=== PATIENT | male | born 1960 | race Caucasian/White ===

== ENCOUNTER 2019-02-02 21:48 | Emergency (ER) | payer MEDICAID, SELFPAY ==
[2019-02-02 21:49] VITALS: BP 99/73; PULSE 75; RESP 14; TEMP 36.4; O2SAT 95; BMI 23.6
--- NOTE | 2019-02-02 22:05 | RAD_ITS ---
STUDY: X-RAY - ABDOMEN/PELVIS REASON FOR EXAM: Male, 58 years old. PEG tube placement TECHNIQUE: Single AP view of the abdomen / pelvis. COMPARISON: None. FINDINGS: Normal visualized lung bases. There is an unremarkable bowel gas pattern. There is no demonstrated free abdominal air. The visualized liver, spleen and kidneys are grossly normal in size and morphology. A PEG tube is noted with the distal tip within the distal gastric body. A small amount of contrast is seen within the stomach. There is no evidence of contrast extravasation. Normal visualized osseous structures. RAD/Abdomen Single View (Portable) IMPRESSION: PEG tube noted appearing in adequate position. There is no evidence of contrast extravasation. Electronically Signed: Jeremi Aguirre MD at 22:18 EST , Service support ,
--- NOTE | 2019-02-02 22:09 | ED.VIS.GEN ---
History of Present Illness Chief Complaint: Other, Pain/Inj Detail of Chief Complaint: PEG tube problem Informant: - - Hospice nurse Narrative: Patient was sent in by hospice. They have been in contact with charge nurse throughout the evening. Patient had a PEG tube placed but they did not have the correct catheter to flush the PEG tube. Upon arrival nursing staff did note that PEG tube requires a twist lock syringe. We were able to secure 1 of these. PEG was able to be aspirated and flushed with air noted in the stomach. Hospice was contacted but states that they needed verification of PEG tube positioning before he can come back. Past Medical History - Allergies and Home Meds Allergies/Adverse Reactions: Allergies lamotrigine [From Lamictal] Allergy (Verified 02/02/19 21:54) Unknown Sulfa (Sulfonamide Antibiotics) Allergy (Verified 02/02/19 21:54) Unknown Primary Care Physician: NOT,DEFINED [NON-STAFF] - Prior records reviewed: Yes Past Medical History: - - Reviewed Lives: - - Hospice Smoking Status: Unknown if ever smoked Review of Systems ROS: Unable to Obtain - Patient nonverbal Physical Exam Vital Signs/Narrative: Vital Signs Temp Pulse Resp BP Pulse Ox 02/02/19 21:49 97.5 F L 75 14 99/73 95 General: Cachectic ENT: Moist mucous membranes Cardiovascular: Regular rate, Regular rhythm Respiratory: No distress, CTA bilaterally Abdomen: Soft, Nontender, - - PEG tube in place. No surrounding erythema or drainage. Extremities: - - Chronic contractures Neurological: Alert Diagnostic/Tx/Re-eval Impressions KUB X-Ray 02/02/19 22:05 IMPRESSION: PEG tube noted appearing in adequate position. There is no evidence of contrast extravasation. Electronically Signed: Jeremi Aguirre MD at 22:18 EST , Service support , 02/02/19 22:05 XRAY Abdomen [Abdomen Single View (Portable)] [RAD] Stat - Medical Decision Making KUB was performed after giving Gastrografin via PEG tube. There is good position with no extravasation of contrast. Patient is discharged back to hospice with syringe so they can use his PEG tube. ED Disposition - Plan for ED Patient: Disposition: Home or Assisted Living Diagnosis: PEG tube malfunction Instructions: PEG Feeding Tube Care: [place] Referrals: NOT,DEFINED [NON-STAFF] -
== END 2019-02-02 22:21 | disposition home or self-care (01) ==
LOC: ED 22:21
PROVIDERS: Emergency Provider Emergency Medicine; Family Provider Internal Medicine Infectious Disease; PCP Internal Medicine Infectious Disease
DX: K94.23 Gastrostomy malfunction (principal)
CPT/HCPCS: 74018; 99284

== ENCOUNTER 2020-04-07 20:53 | Emergency (ER) | payer MEDICAID, SELFPAY ==
[2020-04-07 20:54] VITALS: BP 105/70; PULSE 91; RESP 16; TEMP 36.2; O2SAT 97; BMI 29.0
--- NOTE | 2020-04-07 21:04 | ED.VIS.GEN ---
History of Present Illness Chief Complaint: Other, Pain/Inj Narrative: Patient inadvertently pulled his PEG tube out. He is an [facility] patient. He arrives from an ECF. Past Medical History - Allergies and Home Meds Allergies/Adverse Reactions: Allergies lamotrigine [From Lamictal] Allergy (Verified 02/02/19 21:54) Unknown Sulfa (Sulfonamide Antibiotics) Allergy (Verified 02/02/19 21:54) Unknown Primary Care Physician: Alvaro Trujillo MD [Primary Care Provider] - Past Medical History: - - [facility] otherwise reviewed from ECF paperwork Smoking Status: Unknown if ever smoked Review of Systems ROS: Unable to Obtain - Patient is nonverbal Physical Exam Vital Signs/Narrative: Vital Signs Temp Pulse Resp BP Pulse Ox 04/07/20 20:54 97.1 F L 91 16 105/70 97 General: - - [facility] features ENT: Moist mucous membranes Cardiovascular: Regular rate, Regular rhythm Respiratory: No distress, CTA bilaterally Abdomen: - - He does not withdraw when I palpate his abdomen, he has a chronic well scarred gastric tube site. Back: Nontender Extremities: No edema Skin: Normal color Diagnostic/Tx/Re-eval - Medical Decision Making Procedure note: Gastric tube replacement Performed by emergency physician A 22 Norwegian tube was placed without any difficulty. The balloon was inflated with 5 mL. Gastric contents were seen. Because this is chronic and x-rays not needed. Patient will be discharged in stable condition. ED Disposition - Plan for ED Patient: Diagnosis: PEG tube malfunction Instructions: PEG Feeding Tube Care: [place] Referrals: Alvaro Trujillo MD [Primary Care Provider] - 2 Days for wound check
[2020-04-07 21:57] VITALS: BP 104/61; PULSE 90; RESP 18; O2SAT 98
[2020-04-08 03:29] VITALS: BP 111/84; PULSE 80; RESP 16; O2SAT 97
--- NOTE | 2020-04-08 03:30 | ED.RN ---
PT RETURNED, PEG TUBE FELL OUT.
--- NOTE | 2020-04-08 03:34 | RAD_ITS ---
STUDY: X-RAY - ABDOMEN/PELVIS REASON FOR EXAM: Male, 59 years old. Peg tube placement -- Dr. Gomez injected 50cc of gastrografin TECHNIQUE: Single AP view of the abdomen / pelvis. COMPARISON: None. FINDINGS: There is visually is contrast within the fundus of the stomach duodenal bulb and proximal duodenum. There is a visualized PEG tube overlying the mid aspect of the stomach. There is a gassy appearance of the small and large bowel. RAD/Abdomen Single View IMPRESSION: Percutaneous tube in the stomach with contrast extending into the small bowel as expected. Findings suggestive of ileus. Electronically Signed: Lakia Feliciano MD at 3:58 EST Tel , Service support ,
--- NOTE | 2020-04-08 03:36 | ED.VIS.GEN ---
History of Present Illness Chief Complaint: Other, Pain/Inj Informant: Patient Narrative: Patient presenting via private EMS with a chief complaint of his PEG tube fell out. Patient had it replaced earlier tonight. He came out again. He has been wearing abdominal binder. Past Medical History - Allergies and Home Meds Allergies/Adverse Reactions: Allergies lamotrigine [From Lamictal] Allergy (Verified 02/02/19 21:54) Unknown Sulfa (Sulfonamide Antibiotics) Allergy (Verified 02/02/19 21:54) Unknown Primary Care Physician: Alvaro Trujillo MD [Primary Care Provider] - 2 Days for wound check Past Medical History: - - [facility] Surgical History: - - PEG tube Smoking Status: Unknown if ever smoked Alcohol: None Drugs: None Review of Systems ROS: Unable to Obtain Physical Exam Vital Signs/Narrative: Vital Signs Pulse Resp BP Pulse Ox 04/08/20 03:29 80 16 111/84 H 97 Inital Vital Signs reviewed: Yes General: Well nourished, Well developed, No Acute Distress Head: Normocephalic, Atraumatic Eyes: Perrl, EOMI ENT: Moist mucous membranes, No rhinorrhea Neck: Supple, Nontender Cardiovascular: Regular rate, Regular rhythm, No murmurs Respiratory: No distress, CTA bilaterally, Chest nontender Abdomen: Soft, Nontender, Nondistended, Normal bowel sounds, - - PEG tube track appears without complication Skin: Normal color, No rash Neurological: Alert, Cranial nerves II-XII grossly intact, Normal Strength, Normal Sensation Diagnostic/Tx/Re-eval - Medical Decision Making 22 [place] PEG tube was placed. Balloon inflated to 6 mL of sterile saline in accordance with the manufactures guidelines. As this was the second placement today I obtained a postplacement x-ray. My interpretation of the single view abdominal film is that the tube placement is adequate. Patient will be transported back home. ED Disposition - Plan for ED Patient: Disposition: [facility] Facility Diagnosis: PEG tube malfunction Instructions: PEG Feeding Tube Care: [place] Referrals: Alvaro Trujillo MD [Primary Care Provider] - 2 Days for wound check
--- NOTE | 2020-04-08 04:33 | ED.RN ---
peg tube replaced by dr. aguirre. report given back to squad. pt to return to ECF
== END 2020-04-08 04:34 | disposition skilled nursing facility (03) ==
PROVIDERS: Emergency Provider Emergency Medicine; PCP Internal Medicine Infectious Disease
DX: K94.23 Gastrostomy malfunction (principal)
CPT/HCPCS: 74018; 99284; A4216

== ENCOUNTER 2021-03-20 14:04 | Emergency (ER) | payer MEDICAID, SELFPAY ==
[2021-03-20 14:04] VITALS: BP 123/81; PULSE 102; RESP 14; TEMP 36.6; O2SAT 96; BMI 277.9
--- NOTE | 2021-03-20 14:24 | EX.ED.DYSGE1 ---
HPI History of Present Illness Chief Complaint: Other, Pain/Inj Informant: SNF Narrative Narrative: Patient with history of dementia and Parkinson's disease, nonverbal at this time. ECF sent patient in secondary to patient pulling out his G-tube. He is currently DNR comfort care on hospice. They request his G-tube be replaced for medications and fluids. [facility] Medical History Anxiety disorder Behavioral disorder Cataracts, bilateral Dementia Dysphagia Heart attack HTN (hypertension) Parkinsons RLS (restless legs syndrome) Home Medications acetaminophen 650 mg tablet,extended release 650 mg PO Q12H 10/11/20 [History Last Taken Unknown] bisacodyl 10 mg rectal suppository 10 mg MT DAILY PRN 10/11/20 [History Last Taken Unknown] clonazepam 1 mg tablet 1 mg PO DAILY 10/11/20 [History Last Taken Unknown] haloperidol 5 mg tablet 5 mg PO TID 10/11/20 [History Last Taken Unknown] ketoconazole 2 % shampoo 1 applic TOPICAL 2XW 10/11/20 [History Last Taken Unknown] menthol 0.44 %-zinc oxide 20.6 % topical paste 1 applic TOPICAL 4-6XD PRN 10/11/20 [History Last Taken Unknown] mirtazapine 45 mg tablet 45 mg PO DAILY 10/11/20 [History Last Taken Unknown] morphine 20 mg/5 mL (4 mg/mL) oral solution 20 mg PO Q6H 10/11/20 [History Last Taken Unknown] pedi nutrition,iron,lact-free 0.03 gram-1 kcal/mL oral liquid ml PO 10/11/20 [History Last Taken Unknown] polyethylene glycol 3350 17 gram/dose oral powder 17 g PO DAILY 10/11/20 [History Last Taken Unknown] selenium sulfide 2.5 % lotion 1 applic TOPICAL Q2W 10/11/20 [History Last Taken Unknown] sodium polystyrene sulfonate 15 gram-sorbitol 20 gram/60 mL oral susp 60 ml PO DAILY 10/11/20 [History Last Taken Unknown] triamcinolone acetonide 0.025 % topical cream 1 applic TOPICAL DAILY 10/11/20 [History Last Taken Unknown] Allergy/AdvReac Type Severity Reaction Status Date / Time lamotrigine [From Lamictal] Allergy Unknown Verified 03/20/21 14:20 Sulfa (Sulfonamide Allergy Unknown Verified 03/20/21 14:20 Antibiotics) Social History Smoking Status: Unknown if ever smoked alcohol intake: never ROS ROS ED Review of Systems ROS Unobtainable: due to mental condition EXAM Physical Exam Const Vital Signs: 03/20/21 14:04 Temperature 97.8 F Temperature Source Temporal Pulse Rate 102 H Respiratory Rate 14 Blood Pressure 123/81 H Blood Pressure Mean 95 Pulse Ox 96 Oxygen Delivery Method Room Air Positive well nourished and well developed General Appearance ED: well developed HEENT Reports moist mucous membranes Eyes PERRL Neck supple Chest Wall inspection of chest normal and palpation of chest normal Resp normal respiratory effort and clear to auscultation bilaterally Cardio regular rate and regular rhythm GI GI Narrative: Abdomen soft and nontender. G-tube site clean. Extremity normal to inspection Neuro Neuro Narrative: Alert but nonverbal. MDM MDM Treatment and Re-Evaluation Comments:: 20 Iranian PEG tube placed. X-ray with Gastrografin injection performed with good position of the tube. Patient will be discharged back to [facility]. Discharge Plan Triage Chief Complaint: Other, Pain/Inj ED Provider: Chrissy Michaels Dx/Rx/DC Orders Clinical Impression: PEG tube malfunction Instructions: ED Feeding Tube Insertion Prescriptions: No Action bisacodyl 10 mg suppository 10 mg MT DAILY PRN (Reason: Constipation) RF: 0 Remedy Calazime Intensive Skin 0.44-20.6 % paste 1 applic topical 4-6XD PRNRF: 0 Pediasure Enteral 0.03-1 gram-kcal/mL liquid PO RF: 0 haloperidol 5 mg tablet 5 mg PO TID RF: 0 ketoconazole 2 % shampoo 1 applic topical 2XW RF: 0 clonazepam [Klonopin] 1 mg tablet 1 mg PO DAILY RF: 0 mirtazapine 45 mg tablet 45 mg PO DAILY RF: 0 morphine 20 mg/5 mL (4 mg/mL) solution 20 mg PO Q6H RF: 0 polyethylene glycol 3350 [Miralax] 17 gram/dose powder 17 g PO DAILY RF: 0 selenium sulfide 2.5 % lotion 1 applic topical Q2W RF: 0 SPS (with sorbitol) 15-20 gram/60 mL suspension 60 ml PO DAILY RF: 0 triamcinolone acetonide 0.025 % cream 1 applic topical DAILY RF: 0 acetaminophen [Tylenol 8 Hour] 650 mg tablet extended release 650 mg PO Q12H RF: 0 Primary Care Provider: Care Physician,No Primary Referrals: Care Physician,No Primary [Primary Care Provider] - Disposition Disposition: Home, Self Care
--- NOTE | 2021-03-20 14:45 | RAD_ITS ---
STUDY: X-RAY - ABDOMEN/PELVIS REASON FOR EXAM: Male, 60 years old. G-tube placement -- with Gastro for G-tube placement TECHNIQUE: Single AP view of the abdomen / pelvis. COMPARISON: Comparison is made with prior study dated 04/08/2020. FINDINGS: Contrast was injected into the indwelling PEG tube. The tube is in the stomach.. RAD/Abdomen Single View (Portable) IMPRESSION: The PEG tube is in the stomach. Electronically Signed: Grant Akins MD at 15:13 EST , Service support ,
--- NOTE | 2021-03-20 15:10 | NURSING ---
CALLED HOSPICE, TALKED TO DEBORAH, THEY WILL SET UP TRANSPORT BACK TO [facility]
--- NOTE | 2021-03-20 15:19 | ED.RN ---
rn called quan at [phone] to obtain consent. no answer. rn left message to return call.
[2021-03-20 15:40] VITALS: BP 117/81; PULSE 99; RESP 14; O2SAT 97
== END 2021-03-20 16:06 | disposition home or self-care (01) ==
PROVIDERS: Emergency Provider Emergency Medicine
DX: K94.23 Gastrostomy malfunction (principal); I25.2 Old myocardial infarction; F03.91 Unspecified dementia, unspecified severity, with behavioral disturbance; Z66 Do not resuscitate; Z79.899 Other long term (current) drug therapy
CPT/HCPCS: 74018; 99282